=== PATIENT | female | born 1985 | race American Indian/Alaskan Native ===

== ENCOUNTER 2018-11-28 08:05 | Day surgery (SDC) | payer MEDICAID ==
--- NOTE | 2018-11-28 08:57 | Anesthesia Consultation ---
Anesthesia Consult and Med Hx - Airway Anesthetic Teeth Evaluation: Good ROM Head & Neck: Adequate Mental/Hyoid Distance: Adequate Mallampati Class: Class I Intubation Access Assessment: Good - Pulmonary Exam CTA: Yes - Cardiac Exam Cardiac Exam: RRR - Pre-Operative Health Status ASA Pre-Surgery Classification: ASA2 Proposed Anesthetic Plan: MAC - Pre-Anesthesia Comment Pre-Anesthesia Comments: S/P maxillo-facial surgery. - Gastrointestinal Hx Gastroesophageal Reflux Disease: Yes (nausea/vomiting) - Additional Comments Anesthesia Medical History Comments: Pt has H/O diarrhea
--- NOTE | 2018-11-28 08:57 | Anesthesia Day of Surgery ---
Anesthesia Day of Surgery - Day of Surgery Patient Examined: Yes Patient H&P Reviewed: Yes Patient is NPO: Yes
[2018-11-28] MEDS ORDERED: NACL 0.9% 1000 ML 1,000 ML IV SCH (09:00)
[2018-11-28] MEDS ORDERED: WATER FOR IRRIG STERILE IR ONE (09:36)
[2018-11-28] MEDS ORDERED: WATER FOR IRRIG STERILE ONE (09:36)
[2018-11-28] MEDS ORDERED: DIPRIVAN 10 MG/ML IV ONE (09:39)
[2018-11-28] MEDS ORDERED: VERSED ONE (09:44)
--- NOTE | 2018-11-28 10:16 | Procedure Note ---
Date of procedure: 11/28/18 Pre-op diagnosis: Abdominal Pain/ Diarrhea Post-op diagnosis: other (R/O Microscopic Colitis/ R/O Ileitis/ Moderate, Proximal Colon Diverticuli/ Minor, Internal Hemorrhoid) Procedure: Colonoscopy with Biopsy Anesthesia: GAB Surgeon: MIGUEL CURTIS Estimated blood loss: minimal Pathology: list Specimen disposition: to lab Condition: stable Disposition: same day (Encourage (OTC) Probiotic use and Imodium AD (OTC) use as needed for diarrhea. Avoid aspirin and NSAID for 5 days and follow up in 1 to 2 weeks ([phone]).)
[2018-11-28] MEDS ORDERED: [UNRECOGNIZED DRUG - OTHER] PO PRN (10:30)
--- NOTE | 2018-11-28 10:31 | Operative Report ---
PROCEDURE: Colonoscopy with biopsy. INDICATIONS FOR PROCEDURE: This is a 33-year-old -[place] female who had preeclampsia when she had a a year ago. She does have slightly elevated liver enzymes, possibly may have been because of cholestatic effect secondary to her being placed back on oral contraceptives. Lately, she has been having some abdominal pain and some associated diarrhea and colonoscopy was done to make sure that there was not any significant lower GI pathology present. DESCRIPTION OF PROCEDURE: Procedure was done after getting informed consent with MAC anesthesia. Initial rectal examination was unremarkable. Instrument was passed through the rectum onto the cecum, which was identified with ileocecal valve and appendiceal orifice. Visualization was fair to good. There was moderate diverticular disease noted in the proximal colon. The terminal ileum was intubated showed normal mucosa. Biopsy was done to rule out for possible ileitis. Cecum and ascending colon showed moderate diverticular disease as stated above. Random biopsies were done throughout the colon including the proximal colon, the transverse colon, the descending colon and the sigmoid and rectum. Biopsies were done to rule out for possible microscopic colitis. Other than for the moderate diverticular disease noted in the proximal colon, the transverse colon, descending colon, sigmoid showed normal mucosa and minor internal hemorrhoid was noted on the retroverted view in the rectum. There was a minimal bleeding associated with the procedure. No complications associated with the procedure. ASSESSMENT: Abdominal pain, diarrhea, rule out microscopic colitis, rule out ileitis, moderate proximal colon, diverticular disease, minor internal hemorrhoid. There was minimal bleeding associated with the procedure. No complications associated with the procedure. PLAN: The patient will be encouraged to take probiotics and [id number]-[id number] Imodium A-D if there is persistence of diarrhea. She will be given some samples of Viberzi when she comes back for her next follow up. She will also be asked to avoid aspirin and aspirin-related products for the next few days. RN, Jayla Espinoza was in the room throughout the entirety of the procedure. JOB# [id number] SOFI/JULIO CESAR
[2018-11-28 10:39] VITALS: BP 96/62
--- NOTE | 2018-11-28 10:53 | Post Anesthesia Evaluation ---
- Post Anesthesia Evaluation Patient Participated: Yes Airway Patent: Yes Stable Respiratory Function: Yes Temp > 96.8F: Yes Pain Manageable: Yes Adequeate Hydration: Yes Anesthesia Complications: No
[2018-11-28] MEDS ORDERED: INFANTS' GAS RELIEF PO ONE (11:01)
== END 2018-11-28 08:06 | disposition home or self-care (01) ==
LOC: GIO 08:05
DX: K57.30 Diverticulosis of large intestine without perforation or abscess without bleeding (principal); K64.8 Other hemorrhoids; R19.7 Diarrhea, unspecified; R10.9 Unspecified abdominal pain; K21.9 Gastro-esophageal reflux disease without esophagitis; Z98.890 Other specified postprocedural states
CPT/HCPCS: 45380; 81025; 88305; J2250; J2704